=== PATIENT | female | born 1950 | race Caucasian/White ===

== ENCOUNTER 2019-11-26 06:06 | Day surgery (SDC) | payer MEDICARE, OTHER ==
[~2019-11-26] VITALS: Ht 160 cm; Wt 75.9 kg
[~2019-11-26 06:06] MED LIST: SODIUM CHLORIDE 0.9% 1,000 ML ONE
[2019-11-26] MEDS ORDERED: LIDOCAINE 2% 30 ML JELLY TP ONE (06:07)
[2019-11-26] MEDS ORDERED: LIDOCAINE 4% 50 ML SOLUTION TP ONE (06:07)
[2019-11-26] MEDS ORDERED: BENZOCAINE 20% 50 MCG/SPRAY 57 GM TP ONE (06:07)
[2019-11-26] MEDS ORDERED: ALBUTEROL SULFATE 2.5 MG/0.5 ML NEB SOLUTION NEB ONE (06:07)
[2019-11-26] MEDS ORDERED: SODIUM CHLORIDE 0.9% 1,000 ML IV ONE (06:30)
[2019-11-26] MEDS ORDERED: ALBU8HFA BU (07:27)
[2019-11-26] MEDS ORDERED: OMEP20 PO (07:27)
[2019-11-26] MEDS ORDERED: MOME13HF IH (07:27)
[2019-11-26] MEDS ORDERED: DIVA-111 PO (07:27)
[2019-11-26] MEDS ORDERED: DONE10TA8 PO (07:27)
[2019-11-26] MEDS ORDERED: VENL-193 PO (07:27)
[2019-11-26] MEDS ORDERED: CARV12 PO (07:27)
[2019-11-26] MEDS ORDERED: AMLO5TAB9 PO (07:27)
[2019-11-26] MEDS ORDERED: ARIP15TA2 PO (07:27)
[2019-11-26] MEDS ORDERED: GABA-1201 PO (07:27)
[2019-11-26] MEDS ORDERED: DIPH-654 PO (07:27)
[2019-11-26] MEDS ORDERED: MONT10TA21 PO (07:27)
[2019-11-26] MEDS ORDERED: FERR-89 PO (07:27)
[2019-11-26] MEDS ORDERED: BACL10TA PO (07:27)
[2019-11-26] MEDS ORDERED: ADV100 IH (07:27)
[2019-11-26] MEDS ORDERED: BENZ1TAB10 PO (07:27)
[2019-11-26] MEDS ORDERED: OS500 PO (07:27)
[2019-11-26] MEDS ORDERED: LOSA50TA37 PO (07:27)
[2019-11-26] MEDS ORDERED: ELUX100T PO (07:27)
[2019-11-26] MEDS ORDERED: MIDAZOLAM HCL 2 MG/2 ML VIAL ONE (07:43)
[2019-11-26] MEDS ORDERED: FentaNYL CITRATE-PF 100 MCG/2 ML VIAL ONE (07:43)
[2019-11-26] MEDS ORDERED: MethylPREDNISolone SOD SUCC 125 MG/2 ML VIAL IVP ONE (08:45)
[2019-11-26] MEDS ORDERED: MethylPREDNISolone SOD SUCC 125 MG/2 ML VIAL ONE (09:05)
[2019-11-26] MEDS ORDERED: OXYGEN THERAPY IH SCH (20:00)
== END 2019-11-26 10:05 | disposition home or self-care (01) ==
LOC: SURGERY 06:06
PROVIDERS: ATTEND Internal Medicine Critical Care Medicine
DX: J38.4 Edema of larynx (principal); B37.0 Candidal stomatitis; I10 Essential (primary) hypertension; I25.10 Atherosclerotic heart disease of native coronary artery without angina pectoris; G47.33 Obstructive sleep apnea (adult) (pediatric); Z11.59 Encounter for screening for other viral diseases
CPT/HCPCS: 31623; 31624; 71045; 87015; 87070; 87101; 87205; 87206; 87220; 87635; 88108; 88312; 93005; J2250; J2930; J3010; J7030

== ENCOUNTER 2021-10-31 06:45 | Day surgery (SDC) | payer MEDICARE, OTHER ==
[~2021-10-31] VITALS: Ht 162.6 cm; Wt 68.1 kg
[~2021-10-31 06:45] MED LIST changes: +ALBU8HFA BU; +AMLO-257 PO; +ARIP15TA27 PO; +BACL10TA PO; +BENZ1TAB96 PO; +CARV12 PO; +DIPH-654 PO; +DIVA-111 PO; +DONE-51 PO; +ELUX100T PO; +FERR325T27 PO; +FLUT1DIS4 IH; +GABA-1201 PO; +LOSA-382 PO; +MOME13HF IH; +MONT-35 PO; +OMEP20 PO; +OS500 PO; -SODIUM CHLORIDE 0.9% 1,000 ML ONE; +VENL-193 PO
[2021-10-31] MEDS ORDERED: ALBUTEROL SULFATE 2.5 MG/0.5 ML NEB SOLUTION NEB ONE (06:46)
[2021-10-31] MEDS ORDERED: BENZOCAINE 20% 50 MCG/SPRAY 57 GM TP ONE (06:46)
[2021-10-31] MEDS ORDERED: LIDOCAINE 2% 5 ML JELLY TP ONE (06:46)
[2021-10-31] MEDS ORDERED: LIDOCAINE 4% 50 ML SOLUTION TP ONE (06:46)
[2021-10-31] MEDS ORDERED: SODIUM CHLORIDE 0.9% 1,000 ML ONE (06:47)
[2021-10-31] MEDS ORDERED: SODIUM CHLORIDE 0.9% 1,000 ML IV ONE (07:00)
[2021-10-31 07:02] LABS: COVID AG,FIA SOURCE NASAL SWAB
[2021-10-31] MEDS ORDERED: FentaNYL CITRATE PF 100 MCG/2 ML VIAL ONE (08:15)
[2021-10-31] MEDS ORDERED: MIDAZOLAM HCL 5 MG/ML VIAL ONE (08:16)
[2021-10-31] MEDS ORDERED: MethylPREDNISolone SOD SUCC 125 MG/2 ML VIAL IVP ONE (09:30)
[2021-10-31] MEDS ORDERED: MethylPREDNISolone SOD SUCC 125 MG/2 ML VIAL ONE (10:10)
[2021-10-31] MEDS ORDERED: OXYGEN THERAPY IH SCH (20:00)
== END 2021-10-31 11:45 | disposition home or self-care (01) ==
LOC: SURGERY 06:45
PROVIDERS: ATTEND Internal Medicine Critical Care Medicine
DX: J38.4 Edema of larynx (principal); B37.0 Candidal stomatitis; Z98.890 Other specified postprocedural states; F20.9 Schizophrenia, unspecified; Z90.710 Acquired absence of both cervix and uterus; Z87.01 Personal history of pneumonia (recurrent); J44.9 Chronic obstructive pulmonary disease, unspecified; I50.9 Heart failure, unspecified; G47.30 Sleep apnea, unspecified; Z79.899 Other long term (current) drug therapy
CPT/HCPCS: 31623; 31624; 71045; 87015; 87070; 87101; 87206; 87220; 87426; 88108; 88184; 88185; C9803; J2250; J2930; J3010; J7030; J7613; Z7610

== ENCOUNTER 2023-10-13 06:29 | Day surgery (SDC) | payer MEDICARE, OTHER ==
[~2023-10-13] VITALS: Ht 162.6 cm; Wt 61.4 kg
[~2023-10-13 06:29] MED LIST changes: +BENZ1TAB84 PO; -BENZ1TAB96 PO; +DIPH-1130 PO; -DIPH-654 PO; -MOME13HF IH; +MOME13HF11 IH
[2023-10-13] MEDS ORDERED: LIDOCAINE 2% 11 ML JELLY TP ONE (06:30)
[2023-10-13] MEDS ORDERED: LIDOCAINE 4% 50 ML SOLUTION TP ONE (06:30)
[2023-10-13] MEDS ORDERED: BENZOCAINE 20% 50 MCG/SPRAY 57 GM TP ONE (06:30)
[2023-10-13] MEDS ORDERED: ALBUTEROL SULFATE 2.5 MG/0.5 ML NEB SOLUTION NEB ONE (06:30)
[2023-10-13] MEDS ORDERED: SODIUM CHLORIDE 0.9% 1,000 ML ONE (06:37)
[2023-10-13] MEDS ORDERED: ARIP15TA27 PO (07:19)
[2023-10-13] MEDS ORDERED: AMAN-24 PO (07:23)
[2023-10-13] MEDS ORDERED: FLUT1BLS10 IH (07:23)
[2023-10-13] MEDS ORDERED: CARB1TAB36 PO (07:24)
[2023-10-13] MEDS ORDERED: BENZ-227 PO (07:24)
[2023-10-13] MEDS ORDERED: HYDR25TA2 PO (07:24)
[2023-10-13] MEDS ORDERED: MIDAZOLAM HCL 2 MG/2 ML VIAL ONE (08:06)
[2023-10-13] MEDS ORDERED: FentaNYL CITRATE PF 100 MCG/2 ML VIAL ONE (08:06)
[2023-10-13] MEDS: SODIUM CHLORIDE 0.9% 1,000 ML IV ONE (08:18)
[2023-10-13 09:28] VITALS: PULSE 66; RESP 17; O2SAT 100
[2023-10-13] MEDS ORDERED: MethylPREDNISolone SOD SUCC 125 MG/2 ML VIAL ONE (09:50)
[2023-10-13] MEDS: MethylPREDNISolone SOD SUCC 125 MG/2 ML VIAL IVP ONE (09:54)
== END 2023-10-13 11:35 | disposition home or self-care (01) ==
LOC: SURGERY 06:29
PROVIDERS: ATTEND Internal Medicine Critical Care Medicine
DX: J38.4 Edema of larynx (principal); B37.0 Candidal stomatitis; J44.9 Chronic obstructive pulmonary disease, unspecified; Z87.01 Personal history of pneumonia (recurrent); Z90.710 Acquired absence of both cervix and uterus; I10 Essential (primary) hypertension; Z98.890 Other specified postprocedural states; Z79.899 Other long term (current) drug therapy
CPT/HCPCS: 31623; 87206; 87101; 87220; 87070; 31624; 94640; 71045; 87015; J3010; J2250; J2919; Q9967; J7030; 88108; J7613; Z7610